=== PATIENT | male | born 1950 | race Caucasian/White ===

== ENCOUNTER 2017-10-22 10:29 | Emergency (ER) | payer OTHER, MEDICARE ==
--- NOTE | 2017-10-22 11:33 | EDPHY ---
H & P Smoking Status: Never smoked Time Seen by Provider: 10/22/17 10:37 HPI/ROS: CHIEF COMPLAINT: Neck pain HISTORY OF PRESENT ILLNESS: 67-year-old male with a known history of chronic neck pain and multiple surgeries on his neck presents with worsening neck pain. The patient states that he has ongoing chronic neck pain, however acutely over the last few days he has had worsening pain where he is concerned that "my head is going to fall off.". The patient has seen Dr. Talia Blake for this. He denies any known acute trauma. He denies radicular symptoms in his upper extremities. Denies numbness or tingling in his upper extremities. Denies feelings of weakness in his upper extremities. No chest pain or difficulty breathing. He has not had any relief at home from the pain. No fevers or chills. No headache. No other back pain. REVIEW OF SYSTEMS: Constitutional: No fever, no chills. Eyes: No double or blurry vision. ENT: No sore throat. Respiratory: No cough, no shortness of breath. Cardiac: No chest pain. Gastrointestinal: No abdominal pain, vomiting or diarrhea. Genitourinary: No dysuria. Musculoskeletal: Neck pain as above. No back pain. Skin: No rashes. Neurological: No headache. (Nilsa Anderson) Past Medical/Surgical History: Chronic neck pain, cervical fusion (Nilsa Anderson) Social History: , works as an police radio dispatcher (Nilsa Anderson) Physical Exam: General Appearance: Alert, no distress. Eyes: Pupils equal and round. Extraocular motions are all intact. ENT: Mouth: Mucous membranes moist. Respiratory: No wheezing, rhonchi, or rales, lungs are clear to auscultation. Cardiovascular: Regular rate and rhythm. Gastrointestinal: Abdomen is soft and nontender, no masses, no rebound or guarding, bowel sounds normal. Neurological: Alert and oriented x 3, cranial nerves II through XII grossly intact Skin: Warm and dry, no rashes. Musculoskeletal: Nontender to palpate along the cervical, thoracic or lumbar spine. Limited range of motion of his neck secondary to pain as well as limited from his surgical fusions. Extremities: Full range of motion and no peripheral edema. Normal and equal strength for the upper extremities bilaterally. Radial, median, and ulnar nerves are all intact. Strong radial pulse felt bilaterally. Psychiatric: Patient is oriented X 3, there is no agitation. (Nilsa Anderson) Constitutional: Initial Vital Signs Temperature (C) 36.8 C 10/22/17 10:32 Heart Rate 82 10/22/17 10:32 Respiratory Rate 18 10/22/17 10:32 Blood Pressure 151/98 H 10/22/17 10:32 O2 Sat (%) 98 10/22/17 10:32 O2 Delivery Mode Room Air Allergies/Adverse Reactions: No Known Allergies Allergy (Unverified 10/22/17 10:35) Home Medications: Medication Instructions Recorded Diazepam [Valium] 5 mg PO TIDPRN PRN #15 tab 10/22/17 methylPREDNISolone [Medrol Dose 1 each PO AD #1 ea 10/22/17 Andrés] Medical Decision Making - Diagnostics Imaging: Discussed imaging studies w/ solar energy advisor Radiologist ED Course/Re-evaluation: 67-year-old male presents to the emergency department with worsening neck pain. The case was discussed with Dr. Damon Morales, secondary supervising physician , who did not directly evaluate the patient but agrees with treatment and plan. MRI of the cervical spine both without and with contrast has been ordered. The patient had an IV established. Laboratory studies were unremarkable. The patient was given 30 mg of Toradol IV, 5 mg of IV Valium, and 125 mg of IV Solu- Medrol. MRI reveals diffuse neural foraminal stenosis with out any evidence of cord involvement. He has postsurgical changes from his fusion. He has a small herniated disc at T3-4. The patient was feeling better after the IV medication. He was able to move around a bit more. The patient was offered admission, however he prefer to be discharged home and will follow up with Dr. Talia Blake as an outpatient. He was given a Medrol Dosepak as well as a prescription for Valium for muscular spasms. He was cautioned about drowsiness associated with this medication. Patient was instructed to return to the emergency department if he developed it is worsening neck pain, feelings of weakness in his upper extremities, or if he felt worse in any way. (Nilsa Anderson) I did not see this patient while he was in the emergency department. However his care was discussed with the PA while the patient was in the department. I agree with treatment plan and management (Damon Morales) Differential Diagnosis: Including but not limited to cervical strain, chronic neck pain, musculoskeletal neck pain, pinched nerve, herniated disc (Nilsa Anderson) - Data Points Laboratory Results: Laboratory Results 10/22/17 11:30 10/22/17 11:30 Medications Given: Discontinued Medications Diazepam (Valium) 5 mg IVP EDNOW ONE Stop: 10/22/17 13:53 Last Admin: 10/22/17 14:01 Dose: 5 mg Sodium Chloride (Ns) 1,000 mls @ 0 mls/hr IV ONCE ONE PRN Reason: Wide Open Stop: 10/22/17 13:53 Last Admin: 10/22/17 13:59 Dose: 1,000 mls Ketorolac Tromethamine (Toradol) 30 mg IVP EDNOW ONE Stop: 10/22/17 13:53 Last Admin: 10/22/17 14:01 Dose: 30 mg Methylprednisolone Sodium Succinate (Solu-Medrol) 125 mg IVP EDNOW ONE Stop: 10/22/17 13:53 Last Admin: 10/22/17 14:01 Dose: 125 mg Departure - Departure Disposition: Home, Routine, Self-Care Clinical Impression: Neck pain Condition: Good Instructions: Diazepam (By mouth), Methylprednisolone (By mouth), Neck Pain (ED ) Additional Instructions: Medrol Dosepak as directed for 1 week. Ibuprofen 600 mg every 8 hr as needed for pain. Valium as needed for muscular spasm, caution drowsiness. Follow up with Dr. Blake as discussed. Referrals: Talia Blake [Medical Doctor] - As per Instructions Prescriptions: Diazepam [Valium] 5 mg PO TIDPRN PRN #15 tab PRN Reason: P.r.n. Spasms methylPREDNISolone [Medrol Dose Andrés] 1 each PO AD #1 ea
[2017-10-22 11:36] LABS: PLATELET COUNT 221 10^3/uL (150-400)
[2017-10-22] MEDS ORDERED: GADOBUTROL 10 ML VIAL IVP ONE (12:31)
[2017-10-22] MEDS ORDERED: methylPREDNISolone SOD SUCC 125 MG/2 ML VIAL IVP ONE (13:52)
[2017-10-22] MEDS ORDERED: DIAZEPAM 5 MG/ML 1 ML SYR IVP ONE (13:52)
[2017-10-22] MEDS ORDERED: NS 1,000 ML IV ONE (13:52)
[2017-10-22] MEDS ORDERED: KETOROLAC 30 MG/1 ML SDV IVP ONE (13:52)
[2017-10-22 15:41] VITALS: BP 142/82
--- NOTE | 2017-10-26 11:29 | ASMTCMCOM ---
CM Note CM Note Notes: Patient LM with questions about potential "side effects" from MRI with contrast that patient received on recent ER visit on 10/22/17. Patient contacted and chart reviewed. Patient states that he began having "burning" with urination within a day or 2 of his ER visit and wonders if he should "take meds he has from a past UTI" I encouraged patient to follow up with his PCP, drink plenty of water, and to NOT take any medication/antibiotics without a current prescription. Patient confirms that he does not have a PCP but will follow up with Dr. Blake today Date Signed: 10/26/2017 11:29 AM Electronically Signed By:Shara Garay RN
== END 2017-10-22 15:40 | disposition home or self-care (01) ==
DX: M54.2 Cervicalgia (principal); E86.9 Volume depletion, unspecified
CPT/HCPCS: 72156; 96361; 96374; 96375; 99285; A9585; J1885; J2930; J3360

== ENCOUNTER → 2017-11-30 | Outpatient (CLI) | payer OTHER, MEDICARE | LOC: FIMAGING 10:43 | PROVIDERS: ATTEND Physical Medicine & Rehabilitation | DX: M12.88 Other specific arthropathies, not elsewhere classified, other specified site (principal); Z98.1 Arthrodesis status | CPT/HCPCS: 78320; A9503 ==

== ENCOUNTER → 2017-12-26 | Outpatient (CLI) | payer OTHER, MEDICARE | LOC: FIMAGING 15:13 | PROVIDERS: ATTEND Physical Medicine & Rehabilitation | DX: M89.9 Disorder of bone, unspecified (principal); N20.0 Calculus of kidney; N28.1 Cyst of kidney, acquired | CPT/HCPCS: 81291-90; 82306-90; 82607-90; 82784-90; 83516-90; 84481-90; 86812-90; G0103 ==

== ENCOUNTER → 2018-01-12 | Outpatient (CLI) | payer OTHER, MEDICARE ==
[~2018-01-12] MED LIST: GADOBUTROL 10 ML VIAL IVP ONE
== END ==
LOC: FIMAGING 15:19
PROVIDERS: ATTEND Internal Medicine Infectious Disease
DX: M54.2 Cervicalgia (principal); D72.829 Elevated white blood cell count, unspecified; R79.82 Elevated C-reactive protein (CRP)
CPT/HCPCS: 72156; A9585

== ENCOUNTER → 2018-01-31 | Outpatient (CLI) | payer OTHER, MEDICARE | LOC: FIMAGING 14:47 | DX: M62.9 Disorder of muscle, unspecified (principal); Z98.1 Arthrodesis status ==